=== PATIENT | male | born 1945 | race Caucasian/White ===

== ENCOUNTER → 2017-03-15 | Outpatient (CLI) | payer MEDICARE, BC | LOC: OD 07:13 | DX: Z12.5 Encounter for screening for malignant neoplasm of prostate (principal) | CPT/HCPCS: 36415; G0103 ==

== ENCOUNTER 2017-05-30 19:32 | Inpatient (IN) | payer MEDICARE, BC ==
--- NOTE | 2017-05-30 20:01 | ER Document Report ---
ED General - General Chief Complaint: Shortness Of Breath Stated Complaint: DIFFICULTY BREATHING Time Seen by Provider: 05/30/17 20:00 Notes: The patient is a 72-year-old male, past medical history COPD, presents with increased shortness of breath and difficulty walking over the past 2 days. Wears CPAP at home at night, but does not wear oxygen during the day. No history of smoking. Patient denies chest pain, leg swelling, nausea, vomiting, fevers, headache, back pain or sick contacts. TRAVEL OUTSIDE OF THE [place] IN LAST 30 DAYS: No - Related Data Allergies/Adverse Reactions: nitroglycerin [Nitroglycerin] Allergy (Verified 10/28/13 07:37) BOTTOMED OUT BLOOD PRESSURE Past Medical History - General Information source: Patient - Social History Smoking Status: Never Smoker Family History: Reviewed & Not Pertinent - Past Medical History Cardiac Medical History: Reports: Hx Coronary Artery Disease, Hx Heart Attack, Hx Hypercholesterolemia Denies: Hx Hypertension Pulmonary Medical History: Reports: Hx Bronchitis, Hx COPD, Hx Pneumonia - pt states that he had pneumonia 2 months ago Denies: Hx Asthma Neurological Medical History: Denies: Hx Cerebrovascular Accident, Hx Seizures Renal/ Medical History: Reports: Hx Benign Prostatic Hyperplasia GI Medical History: Reports: Hx Gastroesophageal Reflux Disease, Hx Hiatal Hernia. Denies: Hx Hepatitis, Hx Ulcer Musculoskeltal Medical History: Reports Hx Arthritis Infectious Medical History: Denies: Hx Hepatitis Past Surgical History: Reports: Hx Abdominal Surgery - [place], Hx Cardiac Catheterization, Hx Cardiac Surgery - [facility], Hx Cholecystectomy, Hx Coronary Artery Bypass Graft - 1993, Hx Herniorrhaphy, Hx Open Heart Surgery - 1993 CABG. Denies: Hx Pacemaker - Immunizations Hx Diphtheria, Pertussis, Tetanus Vaccination: Yes Hx Pneumococcal Vaccination: 12/16/08 Review of Systems - Review of Systems Notes: REVIEW OF SYSTEMS: CONSTITUTIONAL: -fevers, -chills EENT: -eye pain, -difficulty swallowing, -nasal congestion CARDIOVASCULAR: -chest pain, -syncope. RESPIRATORY: -cough, +SOB GASTROINTESTINAL: -abdominal pain, -nausea, -vomiting, -diarrhea GENITOURINARY: -dysuria, -hematuria MUSCULOSKELETAL: -back pain, -neck pain SKIN: -rash or skin lesions. HEMATOLOGIC: -easy bruising or bleeding. LYMPHATIC: -swollen, enlarged glands. NEUROLOGICAL: -altered mental status or loss of consciousness, -headache, - neurologic symptoms PSYCHIATRIC: -anxiety, -depression. ALL OTHER SYSTEMS REVIEWED AND NEGATIVE. Physical Exam - Vital signs Vitals: Resp Pulse Ox 36 H 91 L 05/30/17 19:50 05/30/17 19:50 - Notes Notes: PHYSICAL EXAMINATION: GENERAL: Well-appearing, well-nourished and in no acute distress. HEAD: Atraumatic, normocephalic. EYES: Pupils equal round and reactive to light, extraocular movements intact, sclera anicteric, conjunctiva are normal. ENT: nares patent, oropharynx clear without exudates. Moist mucous membranes. NECK: Normal range of motion, supple without lymphadenopathy LUNGS: Diffuse rhonchi. Tachypnea. HEART: Regular rate and rhythm without murmurs ABDOMEN: Soft, nontender, normoactive bowel sounds. No guarding, no rebound. No masses appreciated. EXTREMITIES: Normal range of motion, no pitting or edema. No cyanosis. NEUROLOGICAL: Cranial nerves grossly intact. Normal speech, normal gait. Normal sensory and motor exams. PSYCH: Normal mood, normal affect. SKIN: Warm, Dry, normal turgor, no rashes or lesions noted. Course - Re-evaluation Re-evalutation: Patient arrives tachypneic and tripoding. Placed on BiPap with some improvement in his work of breathing. He was found to be 89% on room air and he does not wear oxygen at home. He is also having generalized body aches and weakness. CTA ordered due to the increased work of breathing, but this does not show evidence of PE or any other concerns. Influenza A is positive. Symptoms are ongoing for the past 2 days, so after discussing the risks and benefits of Tamiflu, will begin Tamiflu due to his underlying COPD. Tried patient off BiPap , but he began to have worsening SOB and labored breathing. Will admit patient for further evaluation and treatment. 05/31/17 01:[address] London and will admit patient as Inpatient to [facility]. - Vital Signs Vital signs: Temp Pulse Resp BP Pulse Ox 100.3 F 84 19 154/124 H 97 05/30/17 20:15 05/30/17 19:55 05/31/17 00:31 05/31/17 00:31 05/31/17 00:31 - Laboratory Result Diagrams: 05/30/17 19:55 05/30/17 19:55 Laboratory results interpreted by me: 05/30/17 05/30/17 05/30/17 19:55 19:55 19:55 RDW 14.9 H Lymphocytes % 10.0 L Creatinine 1.31 H Est GFR (Non-Af Amer) 53 L Glucose 147 H Lactic Acid 2.4 H Direct Bilirubin 0.5 H - Diagnostic Test Radiology reviewed: Image reviewed, Reports reviewed Radiology results interpreted by me: CXR: Cardiomegaly with vascular congestion. - EKG Interpretation by Me EKG shows normal: Sinus rhythm, Jackson, Intervals, QRS Complexes, ST-T Waves Jackson/QRS: Left axis deviation When compared to previous EKG there are: No significant change Discharge - Discharge Clinical Impression: Influenza A, Tachypnea, Hypoxia Condition: Stable Disposition: ADMITTED INPATIENT Admitting Provider: Hospitalist - [facility] Admitted: Telemetry Referrals: NORMA OROZCO MD [Primary Care Provider] - Follow up as needed
[2017-05-30 20:15] LABS: ABSOLUTE BASOPHILS # (AUTO) 0.1 10^3/uL (0.0-0.2); ABSOLUTE MONOCYTES (AUTO) 1.2 10^3/uL (0.1-1.4); ABSOLUTE NEUT (AUTO) 7.7 10^3/uL (1.7-8.2); BASOPHILS % (AUTO) 0.6 % (0-2); EOSINOPHILS % (AUTO) 0.4 % (0-6); HEMATOCRIT 47.1 % (37.9-51.0); HEMOGLOBIN 16.5 g/dL (13.5-17.0); MEAN CORPUSCULAR HGB CONC 34.9 g/dL (32.0-36.0); MEAN CORPUSCULAR VOLUME 94 fl (80-97); MONOCYTES % (AUTO) 11.8 % (3-13); PLATELET COUNT 234 10^3/uL (150-450); RED BLOOD COUNT 4.99 10^6/uL (4.35-5.55); RED CELL DISTRIBUTION WIDTH 14.9 % (11.5-14.0); SEGMENTED NEUTROPHILS % (AUTO) 77.2 % (42-78); TOTAL CELLS COUNTED % (AUTO) 100 %
[2017-05-30 20:44] LABS: BLOOD UREA NITROGEN 16 mg/dL (7-20); CALCIUM 9.5 mg/dL (8.4-10.2); CARBON DIOXIDE 25 mmol/L (22-30); CHLORIDE 100 mmol/L (98-107); GLUCOSE 147 mg/dL (75-110)
[2017-05-30 20:45] LABS: ALANINE AMINOTRANSFERASE 52 U/L (21-72); ALBUMIN 4.7 g/dL (3.5-5.0); ALKALINE PHOSPHATASE 90 U/L (38-126); ANION GAP 14 (5-19); ASPARTATE AMINO TRANSFERASE 41 U/L (17-59); BILIRUBIN,DIRECT 0.5 mg/dL (0.0-0.4); BILIRUBIN,TOTAL 1.2 mg/dL (0.2-1.3); CREATINE KINASE 155 U/L (55-170); SODIUM 139.2 mmol/L (137-145); TOTAL PROTEIN 7.9 g/dL (6.3-8.2)
[2017-05-30 21:02] LABS: VENOUS BLOOD BASE EXCESS 2.6 mmol/L; VENOUS BLOOD HCO3 27.6 mmol/L (20-32); VENOUS BLOOD PCO2 43.7 mmHg (35-63); VENOUS BLOOD PH 7.42 (7.30-7.42)
--- NOTE | 2017-05-30 21:03 | RADIOLOGY REPORT (SQ) ---
EXAM DESCRIPTION: CHEST PA/LAT COMPLETED DATE/TIME: 05/30/2017 8:55 pm REASON FOR STUDY: SOB COMPARISON: 04/06/2014 NUMBER OF VIEWS: Two views. TECHNIQUE: Frontal and lateral radiographic views of the chest acquired. LIMITATIONS: None. FINDINGS: LUNGS AND PLEURA: No opacities, masses or pneumothorax. No pleural effusion. MEDIASTINUM AND HILAR STRUCTURES: Chronic elevation of the right hemidiaphragm. HEART AND VASCULAR STRUCTURES: Cardiac enlargement. Vascular congestion. BONES: No acute findings. HARDWARE: Sternal wires. OTHER: No other significant finding. IMPRESSION: CARDIAC ENLARGEMENT. VASCULAR CONGESTION. TECHNICAL DOCUMENTATION: JOB ID: [id number] [employer]- All Rights Reserved
[2017-05-30] MEDS ORDERED: METHYLPREDNISOLONE INJ 125 MG/2 ML SDV IV ONE (23:11)
[2017-05-30] MEDS ORDERED: IPRATROPIUM/ALBUTEROL 0.5-2.5 MG/3 ML AMPUL NEB ONE (23:11)
--- NOTE | 2017-05-31 00:37 | RADIOLOGY REPORT (SQ) ---
EXAM DESCRIPTION: CTA CHEST CLINICAL HISTORY: 72 years Male, hypoxia, tachypnea COMPARISON: CR, 05/30/2018. CR, 04/06/2014, report only TECHNIQUE: IV contrast. Multiplanar reformat. This exam was performed according to our departmental dose-optimization program, which includes automated exposure control, adjustment of the mA and/or kV according to patient size and/or use of iterative reconstruction technique. FINDINGS: Mild nonspecific mediastinal lymphadenopathy includes a 1.5 x 1.1 cm aortopulmonary node, image 42 of series 3. Small right basilar atelectasis or scar and elevation of the right hemidiaphragm with small right lung volume consistent with prior report, 04/06/2014. No evidence of pulmonary embolus. No right ventricular strain. Moderate coronary arterial calcification-stenting. Sternotomy. Surgical clips of the right upper abdominal quadrant. Moderate fatty replacement of the pancreas. IMPRESSION: No evidence of pulmonary embolus. Chronic, small right basilar atelectasis or scar. Mild nonspecific mediastinal lymphadenopathy.
[2017-05-31 01:05] LABS: A TYPE INFLUENZA AG POSITIVE (NEGATIVE)
[2017-05-31 01:06] LABS: B INFLUENZA AG NEGATIVE (NEGATIVE)
[2017-05-31] MEDS ORDERED: OSELTAMIVIR PHOSPHATE 75 MG CAPSULE PO ONE (01:15)
[2017-05-31] MEDS ORDERED: CHLORPHENIRAMINE MALEATE 4 MG TABLET PO ONE (01:24)
[2017-05-31] MEDS ORDERED: IPRATROPIUM/ALBUTEROL 0.5-2.5 MG/3 ML AMPUL NEB PRN (01:24)
[2017-05-31] MEDS ORDERED: NORMAL SALINE 1000 ML 1,000 ML IV SCH (01:30)
[2017-05-31] MEDS ORDERED: FLUTICASONE NASAL SPRAY 50 MCG/SPRY 120 SPRAY/16 GM NASL ONE (01:45)
[2017-05-31] MEDS: IPRATROPIUM/ALBUTEROL 0.5-2.5 MG/3 ML AMPUL NEB SCH ×4 (01:55→20:14)
[2017-05-31] MEDS ORDERED: LEVOFLOXACIN 750 MG/D5W RTU 750 MG/150 ML RTUPB IV ONE (02:00)
[2017-05-31] MEDS ORDERED: CHLORPHENIRAMINE MALEATE 4 MG TABLET ONE (02:31)
[2017-05-31] MEDS ORDERED: FLUTICASONE NASAL SPRAY 50 MCG/SPRY 120 SPRAY/16 GM ONE (02:32)
[2017-05-31 04:29] LABS: HEMATOCRIT 44.8 % (37.9-51.0); HEMOGLOBIN 15.4 g/dL (13.5-17.0); MEAN CORPUSCULAR HEMOGLOBIN 32.4 pg (27.0-33.4); MEAN CORPUSCULAR HGB CONC 34.5 g/dL (32.0-36.0); MEAN CORPUSCULAR VOLUME 94 fl (80-97); PLATELET COUNT 214 10^3/uL (150-450); RED BLOOD COUNT 4.76 10^6/uL (4.35-5.55); RED CELL DISTRIBUTION WIDTH 14.6 % (11.5-14.0); WHITE BLOOD COUNT 13.7 10^3/uL (4.0-10.5)
[2017-05-31 04:39] LABS: ANION GAP 16 (5-19); BLOOD UREA NITROGEN 18 mg/dL (7-20); CALCIUM 9.2 mg/dL (8.4-10.2); CARBON DIOXIDE 23 mmol/L (22-30); CHLORIDE 99 mmol/L (98-107); GLUCOSE 211 mg/dL (75-110); POTASSIUM 3.9 mmol/L (3.6-5.0); SODIUM 137.7 mmol/L (137-145)
[2017-05-31 04:55] LABS: ABSOLUTE LYMPHOCYTES# (MANUAL) 0.5 10^3/uL (0.5-4.7); ABSOLUTE MONOCYTES # (MANUAL) 0.7 10^3/uL (0.1-1.4); ABSOLUTE NEUTROPHILS# (MANUAL) 12.5 10^3/uL (1.7-8.2); BAND NEUTROPHILS % (MANUAL) 10 % (3-5); BASOPHILS % (MANUAL) 0 % (0-2); EOSINOPHILS % (MANUAL) 0 % (0-6); LYMPHOCYTES % (MANUAL) 4 % (13-45); MONOCYTES % (MANUAL) 5 % (3-13); SEGMENTED NEUTROPHILS % (MAN) 81 % (42-78); TOTAL CELLS COUNTED 100
[2017-05-31 04:56] LABS: PLATELET COMMENT ADEQUATE; RBC MORPHOLOGY COMMENT NORMO-CYTIC/CHROMIC
[2017-05-31] MEDS ORDERED: VANCOMYCIN HCL 1,000 MG in DEXTROSE 5%-WATER 250 ML IV ONE (05:34)
--- NOTE | 2017-05-31 05:42 | PDOC H&P ---
History of Present Illness Admission Date/PCP: 05/31/17 01:33 NORMA OROZCO MD Patient complains of: Shortness of breath History of Present Illness: LISE ARCHIBALD is a 72 year old male with past medical history of COPD, obstructive sleep apnea and vascular dementia. Patient presents with 2 days of exertional shortness of breath and nonproductive cough prompting an evaluation emergency room where he was found to have influenza A, started on Tamiflu, albuterol and Atrovent. CTA obtained was negative for pulmonary emboli but showed emphysema with scarring. Given persistent hypoxia is referred to the hospitalist for admission. Patient is a very limited historian but socially appropriate and denies pain. Past Medical History Cardiac Medical History: Reports: Coronary Artery Disease, Myocardial Infarction , Hyperlipidema Denies: Hypertension Pulmonary Medical History: Reports: Bronchitis, Chronic Obstructive Pulmonary Disease (COPD), Pneumonia - pt states that he had pneumonia 2 months ago Denies: Asthma Neurological Medical History: Denies: Seizures GI Medical History: Reports: Gastroesophageal Reflux Disease, Hiatal Hernia Denies: Hepatitis Musculoskeltal Medical History: Reports: Arthritis Hematology: Denies: Anemia, Sickle Cell Disease Past Surgical History Past Surgical History: Reports: Cardiac Catheterization, Cholecystectomy, Coronary Artery Bypass Graft - 1993, Herniorrhaphy Denies: Pacemaker Social History Information Source: Patient, [facility] Records Lives with: Spouse/Significant other Smoking Status: Never Smoker Frequency of Alcohol Use: None Hx Recreational Drug Use: No Hx Prescription Drug Abuse: No - Advance Directive Resuscitation Status: Full Code Family History Family History: COPD Parental Family History Reviewed: Yes Children Family History Reviewed: Yes Sibling(s) Family History Reviewed.: Yes Medication/Allergy Home Medications: Aspirin [Aspirin 325 mg Tablet] 325 mg PO DAILY 05/24/11 Folic Acid/Mv,Fe,Other Min [Centrum Complete Multivit Tab] 1 each PO DAILY 05/24 Niacin [Niaspan] 750 mg PO BID 05/24/11 Tamsulosin HCl [Flomax 0.4 mg Cap.sr] 0.4 mg PO BID 05/24/11 Vitamin B Complex [B Complex] 1 each PO DAILY 05/24/11 Omeprazole [Prilosec 40 mg Capsule] 40 mg PO BID #0 05/26/12 Finasteride [Proscar 5 mg Tablet] 5 mg PO DAILY 10/28/13 Cetirizine HCl [All Day Allergy] 10 mg PO DAILY 04/03/14 Montelukast Sodium [Singulair 10 mg Tablet] 10 mg PO QHS 04/03/14 Albuterol Sulfate [Albuterol Sulfate 2.5mg/3 mL] 1 vial IH Q4 PRN #30 vial 04/07 Fluticasone Propionate [Flonase Nasal [place] 50 Mcg/[place] 16 gm] 1 spray NASL Q12 #1 spray.pump 04/07/14 Levofloxacin [Levaquin] 500 mg PO DAILY #5 tablet 04/07/14 Prednisone [Deltasone 10 mg Tablet] 10 mg PO ASDIR PRN #21 tablet 04/07/14 Allergies/Adverse Reactions: nitroglycerin [Nitroglycerin] Allergy (Verified 10/28/13 07:37) BOTTOMED OUT BLOOD PRESSURE Review of Systems ROS unobtainable: Due to mental status Physical Exam Vital Signs: Temp Pulse Resp BP Pulse Ox 100.3 F 76 27 H 134/76 H 97 05/30/17 20:15 05/31/17 01:55 05/31/17 04:02 05/31/17 04:02 05/31/17 04:02 Intake & Output 05/29/17 05/30/17 05/31/17 11:59 11:59 11:59 Output Total 300 Balance -300 General appearance: PRESENT: cooperative, mild distress Head exam: PRESENT: atraumatic, normocephalic Eye exam: PRESENT: conjunctiva pink, EOMI, PERRLA. ABSENT: scleral icterus Ear exam: PRESENT: normal external ear exam Mouth exam: PRESENT: moist, tongue midline Neck exam: ABSENT: carotid bruit, JVD, lymphadenopathy, thyromegaly Respiratory exam: PRESENT: accessory muscle use, crackles, prolonged expiratory phas, rales, rhonchi, symmetrical, tachypnea. ABSENT: clear to auscultation onel , stridor, wheezes Cardiovascular exam: PRESENT: gallop, +S1, +S2, tachycardia Pulses: PRESENT: normal dorsalis pedis pul Vascular exam: PRESENT: normal capillary refill GI/Abdominal exam: PRESENT: normal bowel sounds, soft. ABSENT: distended, guarding, mass, organolmegaly, rebound, tenderness Rectal exam: PRESENT: deferred Extremities exam: PRESENT: full ROM. ABSENT: calf tenderness, clubbing, pedal edema Neurological exam: PRESENT: alert, awake, oriented to person, oriented to place , oriented to time, oriented to situation, CN II-XII grossly intact. ABSENT: motor sensory deficit Psychiatric exam: PRESENT: appropriate affect, normal mood. ABSENT: homicidal ideation, suicidal ideation Skin exam: PRESENT: dry, intact, warm. ABSENT: cyanosis, rash Results Laboratory Results: 05/31/17 04:10 05/31/17 04:10 05/31/17 05/31/17 04:10 04:10 WBC 13.7 H RBC 4.76 Hgb 15.4 Hct 44.8 MCV 94 MCH 32.4 MCHC 34.5 RDW 14.6 H Plt Count 214 Seg Neutrophils % Not Reportable Lymphocytes % Not Reportable Monocytes % Not Reportable Eosinophils % Not Reportable Basophils % Not Reportable Absolute Neutrophils Not Reportable Absolute Lymphocytes Not Reportable Absolute Monocytes Not Reportable Absolute Eosinophils Not Reportable Absolute Basophils Not Reportable Sodium 137.7 Potassium 3.9 Chloride 99 Carbon Dioxide 23 Anion Gap 16 BUN 18 Creatinine 1.25 Est GFR ( Amer) > 60 Est GFR (Non-Af Amer) 56 L Glucose 211 H Calcium 9.2 Impressions: Chest X-Ray 05/30/17 20:00 IMPRESSION: CARDIAC ENLARGEMENT. VASCULAR CONGESTION. Chest/Abdomen CTA 05/30/17 23:11 IMPRESSION: No evidence of pulmonary embolus. Chronic, small right basilar atelectasis or scar. Mild nonspecific mediastinal lymphadenopathy. Assessment & Plan - Diagnosis (1) Pneumonia Is this a current diagnosis for this admission?: Yes Plan: Complicated by influenza and bandemia. Pneumonia care set initiated Tamiflu and vancomycin given influenza. Incentive spirometry, BiPAP albuterol and Atrovent. (2) Influenza A Is this a current diagnosis for this admission?: Yes Plan: Tamiflu and supportive measures (3) Obstructive chronic bronchitis with exacerbation Is this a current diagnosis for this admission?: Yes Plan: Flutter valve (4) CAD (coronary artery disease) Is this a current diagnosis for this admission?: Yes Plan: Serial cardiac enzymes. - Time Time Spent: 50 to 70 Minutes - Inpatient Certification Medical Necessity: Need Close Monitoring Due to Risk of Patient Decompensation
[2017-05-31] MEDS ORDERED: VANCOMYCIN HCL 0 MG in DEXTROSE 5%-WATER 250 ML IV NR (05:45)
[2017-05-31] MEDS ORDERED: VANCOMYCIN HCL INJ 1000 MG VIAL IV ONE (06:30)
--- NOTE | 2017-05-31 09:41 | EKG REPORT ---
SEVERITY:- OTHERWISE NORMAL ECG - SINUS RHYTHM LEFT AXIS DEVIATION : Confirmed by: Damon Hale 31-May-2017 09:39:19
[2017-05-31] MEDS: ASPIRIN 325 MG TABLET PO SCH (09:42)
[2017-05-31] MEDS: OSELTAMIVIR PHOSPHATE 75 MG CAPSULE PO SCH (09:42)
[2017-05-31] MEDS: GUAIFENESIN SYRP 200 MG/10 ML UDC PO PRN (09:43)
[2017-05-31] MEDS: GUAIFENESIN 600 MG TABLET.SA PO SCH ×2 (09:44→22:58)
[2017-05-31] MEDS: LORATADINE 10 MG TABLET PO SCH (09:45)
[2017-05-31] MEDS: FINASTERIDE 5 MG TABLET PO SCH (09:45)
[2017-05-31] MEDS: PREDNISONE 20 MG TABLET PO SCH ×2 (09:46→22:58)
[2017-05-31] MEDS: TAMSULOSIN HCL 0.4 MG CAP.SR.24H PO SCH ×2 (09:46→19:11)
[2017-05-31] MEDS: HEPARIN SOD (PORCINE) 5,000 UNIT/ML 1 ML SYRINGE SUBCUT SCH ×3 (09:47→22:57)
[2017-05-31] MEDS: FLUTICASONE NASAL SPRAY 50 MCG/SPRY 120 SPRAY/16 GM NASL SCH ×2 (09:57→22:58)
[2017-05-31] MEDS ORDERED: (PENDING PHARMACY ID) (Cetirizine Hcl [All Day Allergy] 10 MG) PO SCH (10:00)
[2017-05-31] MEDS: VANCOMYCIN HCL 1,000 MG in DEXTROSE 5%-WATER 250 ML IV SCH (18:30)
--- NOTE | 2017-05-31 19:08 | PDOC PROGRESS REPORT ---
Subjective Progress Note for:: 05/31/17 Subjective:: Breathing improving, no chest pain or palpitations. No rebound or chills, no nausea or vomiting. Reason For Visit: INFLUENZAE PNEUMONIA C COPD EXACERBATION Physical Exam Vital Signs: Temp Pulse Resp BP Pulse Ox 97.6 F 69 20 137/67 H 96 05/31/17 16:09 05/31/17 16:09 05/31/17 16:09 05/31/17 16:09 05/31/17 16:09 Intake & Output 05/30/17 05/31/17 06/01/17 06:59 06:59 06:59 Output Total 300 Balance -300 GEN: NAD, well-deloped, well-nourished NECK supple, no JVD CV: RRR, NL S1S2 LUNGS: Few bilateral expiratory wheezes, good air movement ABDOMEN Soft, NT, +BS EXTERMITIES: No e/c/c NEURO: Alert, oriented Results Laboratory Results: 05/31/17 04:10 05/31/17 04:10 05/31/17 05/31/17 04:10 04:10 WBC 13.7 H RBC 4.76 Hgb 15.4 Hct 44.8 MCV 94 MCH 32.4 MCHC 34.5 RDW 14.6 H Plt Count 214 Seg Neutrophils % Not Reportable Lymphocytes % Not Reportable Monocytes % Not Reportable Eosinophils % Not Reportable Basophils % Not Reportable Absolute Neutrophils Not Reportable Absolute Lymphocytes Not Reportable Absolute Monocytes Not Reportable Absolute Eosinophils Not Reportable Absolute Basophils Not Reportable Sodium 137.7 Potassium 3.9 Chloride 99 Carbon Dioxide 23 Anion Gap 16 BUN 18 Creatinine 1.25 Est GFR ( Amer) > 60 Est GFR (Non-Af Amer) 56 L Glucose 211 H Calcium 9.2 Impressions: Chest X-Ray 05/30/17 20:00 IMPRESSION: CARDIAC ENLARGEMENT. VASCULAR CONGESTION. Chest/Abdomen CTA 05/30/17 23:11 IMPRESSION: No evidence of pulmonary embolus. Chronic, small right basilar atelectasis or scar. Mild nonspecific mediastinal lymphadenopathy. Assessment & Plan - Plan Summary Plan Summary: (1) Pneumonia Is this a current diagnosis for this admission?: Yes Plan: Complicated by influenza and bandemia. Continue Tamiflu and vancomycin given influenza. Continue incentive spirometry, BiPAP albuterol and Atrovent. Follow blood culture results. (2) Influenza A Is this a current diagnosis for this admission?: Yes Plan: Continue Tamiflu and supportive measures (3) Obstructive chronic bronchitis with exacerbation Is this a current diagnosis for this admission?: Yes Plan: BiPAP, nebulizers, steroids. (4) CAD (coronary artery disease) Is this a current diagnosis for this admission?: Yes Plan: Stable, no chest pain.
[2017-05-31 20:16] LABS: HEMATOCRIT 41.7 % (37.9-51.0); HEMOGLOBIN 14.3 g/dL (13.5-17.0); MEAN CORPUSCULAR HEMOGLOBIN 32.1 pg (27.0-33.4); MEAN CORPUSCULAR HGB CONC 34.2 g/dL (32.0-36.0); MEAN CORPUSCULAR VOLUME 94 fl (80-97); PLATELET COUNT 190 10^3/uL (150-450); RED BLOOD COUNT 4.44 10^6/uL (4.35-5.55); RED CELL DISTRIBUTION WIDTH 14.4 % (11.5-14.0); WHITE BLOOD COUNT 16.2 10^3/uL (4.0-10.5)
[2017-05-31 20:20] LABS: ANION GAP 13 (5-19); BLOOD UREA NITROGEN 24 mg/dL (7-20); CALCIUM 9.2 mg/dL (8.4-10.2); CARBON DIOXIDE 23 mmol/L (22-30); CHLORIDE 96 mmol/L (98-107); GLUCOSE 283 mg/dL (75-110); POTASSIUM 3.6 mmol/L (3.6-5.0); SODIUM 132.1 mmol/L (137-145)
[2017-05-31 20:51] LABS: ABSOLUTE LYMPHOCYTES# (MANUAL) 0.8 10^3/uL (0.5-4.7); ABSOLUTE MONOCYTES # (MANUAL) 0.6 10^3/uL (0.1-1.4); ABSOLUTE NEUTROPHILS# (MANUAL) 14.7 10^3/uL (1.7-8.2); BAND NEUTROPHILS % (MANUAL) 5 % (3-5); BASOPHILS % (MANUAL) 0 % (0-2); EOSINOPHILS % (MANUAL) 0 % (0-6); LYMPHOCYTES % (MANUAL) 5 % (13-45); MONOCYTES % (MANUAL) 4 % (3-13); SEGMENTED NEUTROPHILS % (MAN) 86 % (42-78); TOTAL CELLS COUNTED 100
[2017-05-31 20:54] LABS: ANISOCYTOSIS SLIGHT; BURR CELLS SLIGHT; TOXIC GRANULATION 1+
[2017-05-31 20:56] LABS: PLATELET COMMENT ADEQUATE; SCHISTOCYTES 1+; TEAR DROP CELLS 1+
[2017-05-31] MEDS: LEVOFLOXACIN 750 MG/D5W RTU 750 MG/150 ML RTUPB IV SCH (22:58)
[2017-05-31] MEDS: MONTELUKAST SODIUM 10 MG TABLET PO SCH (22:58)
[2017-06-01] MEDS: IPRATROPIUM/ALBUTEROL 0.5-2.5 MG/3 ML AMPUL NEB SCH ×4 (02:17→20:50)
[2017-06-01 05:31] LABS: ABSOLUTE LYMPHOCYTES (AUTO) 0.8 10^3/uL (0.5-4.7); ABSOLUTE MONOCYTES (AUTO) 1.3 10^3/uL (0.1-1.4); ABSOLUTE NEUT (AUTO) 13.4 10^3/uL (1.7-8.2); BASOPHILS % (AUTO) 0.2 % (0-2); HEMATOCRIT 39.8 % (37.9-51.0); HEMOGLOBIN 13.8 g/dL (13.5-17.0); LYMPHOCYTES % (AUTO) 5.2 % (13-45); MEAN CORPUSCULAR HEMOGLOBIN 32.4 pg (27.0-33.4); MEAN CORPUSCULAR HGB CONC 34.8 g/dL (32.0-36.0); MEAN CORPUSCULAR VOLUME 93 fl (80-97); MONOCYTES % (AUTO) 8.1 % (3-13); PLATELET COUNT 182 10^3/uL (150-450); RED BLOOD COUNT 4.28 10^6/uL (4.35-5.55); SEGMENTED NEUTROPHILS % (AUTO) 86.5 % (42-78); TOTAL CELLS COUNTED % (AUTO) 100 %; WHITE BLOOD COUNT 15.5 10^3/uL (4.0-10.5)
[2017-06-01 05:40] LABS: ANION GAP 13 (5-19); BLOOD UREA NITROGEN 24 mg/dL (7-20); CALCIUM 8.9 mg/dL (8.4-10.2); CARBON DIOXIDE 23 mmol/L (22-30); CHLORIDE 100 mmol/L (98-107); GLUCOSE 157 mg/dL (75-110); POTASSIUM 3.8 mmol/L (3.6-5.0); SODIUM 135.9 mmol/L (137-145)
[2017-06-01] MEDS: VANCOMYCIN HCL 1,000 MG in DEXTROSE 5%-WATER 250 ML IV SCH (06:23)
[2017-06-01] MEDS: HEPARIN SOD (PORCINE) 5,000 UNIT/ML 1 ML SYRINGE SUBCUT SCH ×3 (06:23→20:50)
[2017-06-01] MEDS: ASPIRIN 325 MG TABLET PO SCH (11:25)
[2017-06-01] MEDS: LORATADINE 10 MG TABLET PO SCH (11:26)
[2017-06-01] MEDS: FINASTERIDE 5 MG TABLET PO SCH (11:26)
[2017-06-01] MEDS: OSELTAMIVIR PHOSPHATE 75 MG CAPSULE PO SCH (11:26)
[2017-06-01] MEDS: PREDNISONE 20 MG TABLET PO SCH ×2 (11:26→20:50)
[2017-06-01] MEDS: TAMSULOSIN HCL 0.4 MG CAP.SR.24H PO SCH ×2 (11:26→17:24)
[2017-06-01] MEDS: FLUTICASONE NASAL SPRAY 50 MCG/SPRY 120 SPRAY/16 GM NASL SCH ×2 (11:27→20:49)
[2017-06-01] MEDS: GUAIFENESIN 600 MG TABLET.SA PO SCH ×2 (11:30→20:49)
[2017-06-01] MEDS: ACETAMINOPHEN 325 MG TABLET PO PRN (13:54)
[2017-06-01] MEDS: VANCOMYCIN HCL 1,500 MG in DEXTROSE 5%-WATER 250 ML IV SCH (17:24)
--- NOTE | 2017-06-01 17:55 | PDOC PROGRESS REPORT ---
Subjective Progress Note for:: 06/01/17 Subjective:: Breathing continues improving, no chest pain or palpitations. No fever or chills, no nausea or vomiting. Reason For Visit: INFLUENZAE PNEUMONIA C COPD EXACERBATION Physical Exam Vital Signs: Temp Pulse Resp BP Pulse Ox 98.4 F 73 17 136/58 H 94 06/01/17 16:38 06/01/17 16:38 06/01/17 16:38 06/01/17 16:38 06/01/17 16:38 Intake & Output 05/31/17 06/01/17 06/02/17 06:59 06:59 06:59 Intake Total 360 Output Total 300 650 Balance -300 -290 Weight 112.5 kg 112.5 kg GEN: NAD, well-deloped, well-nourished NECK supple, no JVD CV: RRR, NL S1S2 LUNGS: Few bilateral expiratory wheezes, good air movement ABDOMEN Soft, NT, +BS EXTERMITIES: No e/c/c NEURO: Alert, oriented Results Laboratory Results: 06/01/17 05:02 06/01/17 05:02 05/31/17 05/31/17 06/01/17 19:54 19:54 05:02 WBC 16.2 H 15.5 H RBC 4.44 4.28 L Hgb 14.3 13.8 Hct 41.7 39.8 MCV 94 93 MCH 32.1 32.4 MCHC 34.2 34.8 RDW 14.4 H 15.0 H Plt Count 190 182 Seg Neutrophils % Not Reportable 86.5 H Lymphocytes % Not Reportable 5.2 L Monocytes % Not Reportable 8.1 Eosinophils % Not Reportable 0.0 Basophils % Not Reportable 0.2 Absolute Neutrophils Not Reportable 13.4 H Absolute Lymphocytes Not Reportable 0.8 Absolute Monocytes Not Reportable 1.3 Absolute Eosinophils Not Reportable 0.0 Absolute Basophils Not Reportable 0.0 Sodium 132.1 L Potassium 3.6 Chloride 96 L Carbon Dioxide 23 Anion Gap 13 BUN 24 H Creatinine 1.27 H Est GFR ( Amer) > 60 Est GFR (Non-Af Amer) 55 L Glucose 283 H Calcium 9.2 06/01/17 05:02 WBC RBC Hgb Hct MCV MCH MCHC RDW Plt Count Seg Neutrophils % Lymphocytes % Monocytes % Eosinophils % Basophils % Absolute Neutrophils Absolute Lymphocytes Absolute Monocytes Absolute Eosinophils Absolute Basophils Sodium 135.9 L Potassium 3.8 Chloride 100 Carbon Dioxide 23 Anion Gap 13 BUN 24 H Creatinine 1.07 Est GFR ( Amer) > 60 Est GFR (Non-Af Amer) > 60 Glucose 157 H Calcium 8.9 Impressions: Chest X-Ray 05/30/17 20:00 IMPRESSION: CARDIAC ENLARGEMENT. VASCULAR CONGESTION. Chest/Abdomen CTA 05/30/17 23:11 IMPRESSION: No evidence of pulmonary embolus. Chronic, small right basilar atelectasis or scar. Mild nonspecific mediastinal lymphadenopathy. Assessment & Plan - Plan Summary Plan Summary: (1) Pneumonia Is this a current diagnosis for this admission?: Yes Plan: Suspected. Complicated by influenza and bandemia. Continue Tamiflu and vancomycin given influenza. Continue incentive spirometry, BiPAP albuterol and Atrovent. Blood cultures no growth 24 hours. Follow blood culture results. -Follow-up chest x-ray in a.m. (2) Influenza A Is this a current diagnosis for this admission?: Yes Plan: Continue Tamiflu and supportive measures (3) Obstructive chronic bronchitis with exacerbation Is this a current diagnosis for this admission?: Yes Plan: BiPAP, nebulizers, steroids. (4) CAD (coronary artery disease) Is this a current diagnosis for this admission?: Yes Plan: Stable, no chest pain.
[2017-06-01 19:22] LABS: ABSOLUTE BASOPHILS # (AUTO) 0.1 10^3/uL (0.0-0.2); ABSOLUTE LYMPHOCYTES (AUTO) 0.8 10^3/uL (0.5-4.7); ABSOLUTE MONOCYTES (AUTO) 0.9 10^3/uL (0.1-1.4); ABSOLUTE NEUT (AUTO) 12.3 10^3/uL (1.7-8.2); BASOPHILS % (AUTO) 0.7 % (0-2); HEMATOCRIT 38.8 % (37.9-51.0); HEMOGLOBIN 13.4 g/dL (13.5-17.0); MEAN CORPUSCULAR HEMOGLOBIN 32.4 pg (27.0-33.4); MEAN CORPUSCULAR HGB CONC 34.5 g/dL (32.0-36.0); MEAN CORPUSCULAR VOLUME 94 fl (80-97); MONOCYTES % (AUTO) 6.4 % (3-13); PLATELET COUNT 208 10^3/uL (150-450); RED BLOOD COUNT 4.13 10^6/uL (4.35-5.55); RED CELL DISTRIBUTION WIDTH 14.8 % (11.5-14.0); SEGMENTED NEUTROPHILS % (AUTO) 86.9 % (42-78); TOTAL CELLS COUNTED % (AUTO) 100 %; WHITE BLOOD COUNT 14.2 10^3/uL (4.0-10.5)
[2017-06-01 19:38] LABS: ANION GAP 11 (5-19); BLOOD UREA NITROGEN 25 mg/dL (7-20); CALCIUM 8.7 mg/dL (8.4-10.2); CARBON DIOXIDE 25 mmol/L (22-30); CHLORIDE 97 mmol/L (98-107); GLUCOSE 283 mg/dL (75-110); POTASSIUM 4.2 mmol/L (3.6-5.0); SODIUM 132.9 mmol/L (137-145)
[2017-06-01] MEDS: MONTELUKAST SODIUM 10 MG TABLET PO SCH (20:50)
[2017-06-01] MEDS: LEVOFLOXACIN 750 MG/D5W RTU 750 MG/150 ML RTUPB IV SCH (20:50)
[2017-06-01] MEDS: GUAIFENESIN SYRP 200 MG/10 ML UDC PO PRN (23:20)
[2017-06-02] MEDS ORDERED: NORMAL SALINE 1000 ML 1,000 ML IV ONE (01:06)
[2017-06-02] MEDS ORDERED: DILTIAZEM HCL INJ 25 MG/5 ML VIAL ONE (01:07)
[2017-06-02] MEDS ORDERED: DONEPEZIL HCL 5 MG TABLET PO ONE (01:15)
[2017-06-02] MEDS ORDERED: MEMANTINE HCL 10 MG TABLET PO ONE (01:15)
[2017-06-02] MEDS ORDERED: DILTIAZEM HCL INJ 25 MG/5 ML VIAL IV STA (01:23)
[2017-06-02] MEDS ORDERED: LORAZEPAM INJ 2 MG/1 ML VIAL ONE ×3 (01:35→05:23)
[2017-06-02] MEDS ORDERED: LORAZEPAM INJ 2 MG/1 ML VIAL IV STA ×2 (01:36→03:40)
[2017-06-02] MEDS ORDERED: METOPROLOL TARTRATE PF/INJ 5 MG/5 ML SDV IV ONE (01:57)
[2017-06-02] MEDS ORDERED: METOPROLOL TARTRATE PF/INJ 5 MG/5 ML SDV IV STA (01:58)
[2017-06-02 02:03] LABS: CREATINE KINASE MB 7.08 ng/mL (<4.55)
[2017-06-02 02:10] LABS: TROPONIN I < 0.012 ng/mL
[2017-06-02] MEDS ORDERED: DILTIAZEM HCL/D5W 125 MG/125 ML RTUINJ IV PRN (02:22)
[2017-06-02] MEDS: IPRATROPIUM/ALBUTEROL 0.5-2.5 MG/3 ML AMPUL NEB SCH ×4 (02:56→19:46)
[2017-06-02] MEDS ORDERED: LORAZEPAM INJ 2 MG/1 ML VIAL IM STA ×2 (04:59→05:30)
[2017-06-02] MEDS: HEPARIN SOD (PORCINE) 5,000 UNIT/ML 1 ML SYRINGE SUBCUT SCH ×3 (05:42→22:17)
[2017-06-02] MEDS: VANCOMYCIN HCL 1,500 MG in DEXTROSE 5%-WATER 250 ML IV SCH ×2 (05:42→17:46)
[2017-06-02] MEDS ORDERED: VANCOMYCIN HCL 1,500 MG in DEXTROSE 5%-WATER 250 ML IV ONE (08:45)
[2017-06-02] MEDS ORDERED: HALOPERIDOL LACTATE INJ 5 MG/1 ML VIAL IV ONE (09:00)
[2017-06-02 09:33] LABS: ABSOLUTE BASOPHILS # (AUTO) 0.1 10^3/uL (0.0-0.2); ABSOLUTE LYMPHOCYTES (AUTO) 1.4 10^3/uL (0.5-4.7); ABSOLUTE MONOCYTES (AUTO) 1.3 10^3/uL (0.1-1.4); ABSOLUTE NEUT (AUTO) 9.7 10^3/uL (1.7-8.2); BASOPHILS % (AUTO) 0.6 % (0-2); EOSINOPHILS % (AUTO) 0.1 % (0-6); HEMATOCRIT 39.2 % (37.9-51.0); HEMOGLOBIN 13.5 g/dL (13.5-17.0); LYMPHOCYTES % (AUTO) 11.5 % (13-45); MEAN CORPUSCULAR HEMOGLOBIN 31.8 pg (27.0-33.4); MEAN CORPUSCULAR HGB CONC 34.3 g/dL (32.0-36.0); MEAN CORPUSCULAR VOLUME 93 fl (80-97); MONOCYTES % (AUTO) 10.2 % (3-13); PLATELET COUNT 225 10^3/uL (150-450); RED BLOOD COUNT 4.24 10^6/uL (4.35-5.55); RED CELL DISTRIBUTION WIDTH 15.1 % (11.5-14.0); SEGMENTED NEUTROPHILS % (AUTO) 77.6 % (42-78); TOTAL CELLS COUNTED % (AUTO) 100 %; WHITE BLOOD COUNT 12.5 10^3/uL (4.0-10.5)
[2017-06-02 09:41] LABS: ANION GAP 11 (5-19); BLOOD UREA NITROGEN 23 mg/dL (7-20); CARBON DIOXIDE 22 mmol/L (22-30); CHLORIDE 105 mmol/L (98-107); GLUCOSE 131 mg/dL (75-110); POTASSIUM 4.1 mmol/L (3.6-5.0); SODIUM 137.9 mmol/L (137-145)
[2017-06-02 09:54] LABS: CREATINE KINASE MB 6.96 ng/mL (<4.55); TROPONIN I 0.025 ng/mL
[2017-06-02] MEDS: ASPIRIN 325 MG TABLET PO SCH (10:16)
[2017-06-02] MEDS: TAMSULOSIN HCL 0.4 MG CAP.SR.24H PO SCH ×2 (10:17→17:45)
[2017-06-02] MEDS: FINASTERIDE 5 MG TABLET PO SCH (10:17)
[2017-06-02] MEDS: LORATADINE 10 MG TABLET PO SCH (10:17)
[2017-06-02] MEDS: GUAIFENESIN 600 MG TABLET.SA PO SCH ×2 (10:17→22:17)
[2017-06-02] MEDS: PREDNISONE 20 MG TABLET PO SCH ×2 (10:17→22:17)
[2017-06-02] MEDS: MEMANTINE HCL 10 MG TABLET PO SCH ×2 (10:17→17:45)
[2017-06-02] MEDS: FLUTICASONE NASAL SPRAY 50 MCG/SPRY 120 SPRAY/16 GM NASL SCH ×2 (10:18→22:17)
[2017-06-02] MEDS: DONEPEZIL HCL 5 MG TABLET PO SCH ×2 (10:18→17:44)
[2017-06-02] MEDS: OSELTAMIVIR PHOSPHATE 75 MG CAPSULE PO SCH (10:18)
--- NOTE | 2017-06-02 11:12 | EKG REPORT ---
SEVERITY:- ABNORMAL ECG - ATRIAL FIBRILLATION WITH RAPID V-RATE LEFT AXIS DEVIATION REPOLARIZATION ABNORMALITY, PROB RATE RELATED : Confirmed by: Damon Hale 02-Jun-2017 11:12:00
[2017-06-02 12:43] LABS: ARTERIAL BLOOD BASE EXCESS 0.2 mmol/L; ARTERIAL BLOOD FIO2 3L; ARTERIAL BLOOD H2CO3 1.14 mmol/L (1.05-1.35); ARTERIAL BLOOD HCO3 24.4 mmol/L (20-26); ARTERIAL BLOOD O2 SATURATION 97.6 % (94-98); ARTERIAL BLOOD PH 7.43 (7.35-7.45); ARTERIAL BLOOD PO2 97.5 mmHg (80-100); ARTERIAL BLOOD TOTAL CO2 25.5 mmol/L (23-27)
--- NOTE | 2017-06-02 14:06 | RADIOLOGY REPORT (SQ) ---
EXAM DESCRIPTION: CHEST SINGLE VIEW COMPLETED DATE/TIME: 06/02/2017 1:38 pm REASON FOR STUDY: Pneumonia COMPARISON: 05/30/2017 EXAM PARAMETERS: NUMBER OF VIEWS: One view. TECHNIQUE: Single frontal radiographic view of the chest acquired. RADIATION DOSE: NA LIMITATIONS: None. FINDINGS: LUNGS AND PLEURA: New parenchymal opacity at the left lung base. Right lung is clear. MEDIASTINUM AND HILAR STRUCTURES: No masses. Contour normal. HEART AND VASCULAR STRUCTURES: Heart enlarged. No overt failure. BONES: Sternal wires. HARDWARE: None in the chest. OTHER: No other significant finding. IMPRESSION: Interval development of left lower lobe pneumonia. TECHNICAL DOCUMENTATION: JOB ID: [id number] [employer]- All Rights Reserved
[2017-06-02 15:09] LABS: CREATINE KINASE MB 5.33 ng/mL (<4.55); TROPONIN I 0.018 ng/mL
[2017-06-02] MEDS ORDERED: HALOPERIDOL LACTATE INJ 5 MG/1 ML VIAL IV PRN (17:37)
[2017-06-02 19:04] LABS: APPEARANCE,URINE CLEAR; BILIRUBIN,URINE NEGATIVE (NEGATIVE); COLOR,URINE YELLOW; GLUCOSE, URINE NEGATIVE (NEGATIVE); KETONES,URINE NEGATIVE (NEGATIVE); LEUKOCYTE ESTERASE,URINE NEGATIVE (NEGATIVE); NITRITE,URINE NEGATIVE (NEGATIVE); PROTEIN,URINE NEGATIVE (NEGATIVE); URINE SPECIFIC GRAVITY 1.027
--- NOTE | 2017-06-02 20:31 | PDOC PROGRESS REPORT ---
Subjective Progress Note for:: 06/02/17 Subjective:: Had episodes of A. fib with rapid ventricular response overnight to 170s. Also with restlessness, treated with Ativan, but no typing way. Patient currently mitten restraints. Family at bedside. Reason For Visit: INFLUENZAE PNEUMONIA C COPD EXACERBATION Physical Exam Vital Signs: Temp Pulse Resp BP Pulse Ox 98.2 F 61 26 H 130/61 H 97 06/02/17 15:21 06/02/17 19:45 06/02/17 19:45 06/02/17 15:21 06/02/17 19:45 Intake & Output 06/01/17 06/02/17 06/03/17 06:59 06:59 06:59 Intake Total 360 2606 800 Output Total 128 370 9440 Balance -290 2156 -200 Weight 112.5 kg 108.9 kg GEN: NAD, well-deloped, well-nourished NECK supple, no JVD CV: RRR, NL S1S2 LUNGS: Few bilateral expiratory wheezes and basilar crackles, good air movement ABDOMEN Soft, NT, +BS EXTERMITIES: No e/c/c NEURO: Alert, oriented to name Results Laboratory Results: 06/02/17 08:49 06/02/17 08:49 06/02/17 06/02/17 06/02/17 01:24 08:49 08:49 WBC 12.5 H RBC 4.24 L Hgb 13.5 Hct 39.2 MCV 93 MCH 31.8 MCHC 34.3 RDW 15.1 H Plt Count 225 Seg Neutrophils % 77.6 Lymphocytes % 11.5 L Monocytes % 10.2 Eosinophils % 0.1 Basophils % 0.6 Absolute Neutrophils 9.7 H Absolute Lymphocytes 1.4 Absolute Monocytes 1.3 Absolute Eosinophils 0.0 Absolute Basophils 0.1 Carbonic Acid HCO3/H2CO3 Ratio ABG pH ABG pCO2 ABG pO2 ABG HCO3 ABG O2 Saturation ABG Base Excess FiO2 Sodium 137.9 Potassium 4.1 Chloride 105 Carbon Dioxide 22 Anion Gap 11 BUN 23 H Creatinine 0.92 Est GFR ( Amer) > 60 Est GFR (Non-Af Amer) > 60 Glucose 131 H Calcium 9.0 Magnesium 2.2 2.3 Urine Color Urine Appearance Urine pH Ur Specific [place] Urine Protein Urine Glucose (UA) Urine Ketones Urine Blood Urine Nitrite Ur Leukocyte Esterase Urine WBC (Auto) Urine RBC (Auto) 06/02/17 06/02/17 11:00 18:15 WBC RBC Hgb Hct MCV MCH MCHC RDW Plt Count Seg Neutrophils % Lymphocytes % Monocytes % Eosinophils % Basophils % Absolute Neutrophils Absolute Lymphocytes Absolute Monocytes Absolute Eosinophils Absolute Basophils Carbonic Acid 1.14 HCO3/H2CO3 Ratio 21:1 ABG pH 7.43 ABG pCO2 38.0 ABG pO2 97.5 ABG HCO3 24.4 ABG O2 Saturation 97.6 ABG Base Excess 0.2 FiO2 3L Sodium Potassium Chloride Carbon Dioxide Anion Gap BUN Creatinine Est GFR ( Amer) Est GFR (Non-Af Amer) Glucose Calcium Magnesium Urine Color YELLOW Urine Appearance CLEAR Urine pH 5.0 Ur Specific [place] 1.027 Urine Protein NEGATIVE Urine Glucose (UA) NEGATIVE Urine Ketones NEGATIVE Urine Blood NEGATIVE Urine Nitrite NEGATIVE Ur Leukocyte Esterase NEGATIVE Urine WBC (Auto) 1 Urine RBC (Auto) 1 06/02/17 06/02/17 06/02/17 01:24 01:24 08:49 Creatine Kinase 431 H 475 H CK-MB (CK-2) 7.08 H Troponin I < 0.012 06/02/17 06/02/17 06/02/17 08:49 14:06 14:06 Creatine Kinase 352 H CK-MB (CK-2) 6.96 H 5.33 H Troponin I 0.025 0.018 Impressions: Chest/Abdomen CTA 05/30/17 23:11 IMPRESSION: No evidence of pulmonary embolus. Chronic, small right basilar atelectasis or scar. Mild nonspecific mediastinal lymphadenopathy. Chest X-Ray 06/02/17 00:00 IMPRESSION: Interval development of left lower lobe pneumonia. Assessment & Plan - Diagnosis (1) Influenza A Is this a current diagnosis for this admission?: Yes Plan: Continue Tamiflu and supportive care measures. (2) Pneumonia Qualifiers: Pneumonia type: due to unspecified organism Is this a current diagnosis for this admission?: Yes Plan: Complicated by influenza and bandemia. Continue Tamiflu and vancomycin given influenza. Continue incentive spirometry, BiPAP albuterol and Atrovent. Blood cultures no growth 24 hours. Follow blood culture results.\ Also Levaquin added to antibiotics, will continue. Blood cultures from admission negative to date. (3) CAD (coronary artery disease) Is this a current diagnosis for this admission?: Yes Plan: No acute issue at this time. (4) Atrial fibrillation with rapid ventricular response Is this a current diagnosis for this admission?: Yes Plan: Rate control at this time. Continue heparin, diltiazem. Continue monitoring on telemetry. Follow-up EKG in a.m.
[2017-06-02] MEDS: MONTELUKAST SODIUM 10 MG TABLET PO SCH (22:17)
[2017-06-02] MEDS: LEVOFLOXACIN 750 MG TABLET PO SCH (22:17)
[2017-06-03] MEDS: IPRATROPIUM/ALBUTEROL 0.5-2.5 MG/3 ML AMPUL NEB SCH ×4 (01:59→21:04)
[2017-06-03] MEDS: VANCOMYCIN HCL 1,500 MG in DEXTROSE 5%-WATER 250 ML IV SCH ×2 (06:00→18:06)
[2017-06-03] MEDS: HEPARIN SOD (PORCINE) 5,000 UNIT/ML 1 ML SYRINGE SUBCUT SCH ×3 (06:00→22:26)
[2017-06-03 06:24] LABS: ABSOLUTE MONOCYTES (AUTO) 0.9 10^3/uL (0.1-1.4); ABSOLUTE NEUT (AUTO) 6.8 10^3/uL (1.7-8.2); BASOPHILS % (AUTO) 0.2 % (0-2); HEMATOCRIT 37.3 % (37.9-51.0); HEMOGLOBIN 12.9 g/dL (13.5-17.0); LYMPHOCYTES % (AUTO) 11.7 % (13-45); MEAN CORPUSCULAR HEMOGLOBIN 32.5 pg (27.0-33.4); MEAN CORPUSCULAR HGB CONC 34.6 g/dL (32.0-36.0); MEAN CORPUSCULAR VOLUME 94 fl (80-97); MONOCYTES % (AUTO) 10.4 % (3-13); PLATELET COUNT 205 10^3/uL (150-450); RED BLOOD COUNT 3.97 10^6/uL (4.35-5.55); SEGMENTED NEUTROPHILS % (AUTO) 77.7 % (42-78); TOTAL CELLS COUNTED % (AUTO) 100 %; WHITE BLOOD COUNT 8.8 10^3/uL (4.0-10.5)
[2017-06-03 06:51] LABS: VANCOMYCIN,TROUGH 15.7 ug/mL (5.0-20.0)
[2017-06-03 06:53] LABS: ANION GAP 10 (5-19); BLOOD UREA NITROGEN 17 mg/dL (7-20); CALCIUM 8.9 mg/dL (8.4-10.2); CARBON DIOXIDE 23 mmol/L (22-30); CHLORIDE 107 mmol/L (98-107); GLUCOSE 162 mg/dL (75-110); SODIUM 139.8 mmol/L (137-145)
--- NOTE | 2017-06-03 08:39 | RADIOLOGY REPORT (SQ) ---
EXAM DESCRIPTION: CT HEAD WITHOUT COMPLETED DATE/TIME: 06/03/2017 8:24 am REASON FOR STUDY: mental status change COMPARISON: 04/04/2014. TECHNIQUE: Axial images acquired through the brain without intravenous contrast. Images reviewed wi th bone, brain and subdural windows. Images stored on PACS. All CT scanners at this facility use dose modulation, iterative reconstruction, and/or weight based d osing when appropriate to reduce radiation dose to as low as reasonably achievable (ALARA). [facility]: Dose Right [facility]: CareDose [facility]: Dose Right [facility]: Teradose 4D [facility]: Smart [employer] RADIATION DOSE: CT Rad equipment meets quality standard of care and radiation dose reduction techniq ues were employed. CTDIvol: 64.6 mGy. DLP: 1163 mGy-cm. mGy. LIMITATIONS: None. FINDINGS: VENTRICLES: Prominent. CEREBRUM: There is again evidence of decreased attenuation subcortical periventricular white matter c onsistent chronic white matter change. No intracranial hemorrhage. No midline shift. CEREBELLUM: No masses. No hemorrhage. No alteration of density. No evidence for acute infarction. EXTRAAXIAL SPACES: Age related involutional change. ORBITS AND GLOBE: No intra- or extraconal masses. Normal contour of globe without masses. CALVARIUM: No fracture. PARANASAL SINUSES: Chronic mucosal thickening right maxillary and bilateral ethmoid sinuses. SOFT TISSUES: No mass or hematoma. OTHER: No other significant finding. IMPRESSION: NO SIGNIFICANT INTERVAL CHANGE. EVIDENCE OF ACUTE STROKE: NO. COMMENT: Quality ID # [id number]: Final reports with documentation of one or more dose reduction techniques (e.g., Automated exposure control, adjustment of the mA and/or kV according to patient size, use of iterative reconstruction technique) TECHNICAL DOCUMENTATION: JOB ID: [id number] HI-69 2010 [employer]- All Rights Reserved
[2017-06-03] MEDS: LORATADINE 10 MG TABLET PO SCH (09:27)
[2017-06-03] MEDS: ASPIRIN 325 MG TABLET PO SCH (09:27)
[2017-06-03] MEDS: MEMANTINE HCL 10 MG TABLET PO SCH ×2 (09:27→18:05)
[2017-06-03] MEDS: GUAIFENESIN 600 MG TABLET.SA PO SCH ×2 (09:27→22:27)
[2017-06-03] MEDS: DONEPEZIL HCL 5 MG TABLET PO SCH ×2 (09:27→18:05)
[2017-06-03] MEDS: PREDNISONE 20 MG TABLET PO SCH ×2 (09:27→22:27)
[2017-06-03] MEDS: OSELTAMIVIR PHOSPHATE 75 MG CAPSULE PO SCH (09:27)
[2017-06-03] MEDS: TAMSULOSIN HCL 0.4 MG CAP.SR.24H PO SCH ×2 (09:27→18:05)
[2017-06-03] MEDS: FINASTERIDE 5 MG TABLET PO SCH (09:27)
[2017-06-03] MEDS: FLUTICASONE NASAL SPRAY 50 MCG/SPRY 120 SPRAY/16 GM NASL SCH ×2 (09:28→22:27)
--- NOTE | 2017-06-03 09:58 | EKG REPORT ---
SEVERITY:- NORMAL ECG - SINUS RHYTHM : Confirmed by: Damon Hale 03-Jun-2017 09:57:29
--- NOTE | 2017-06-03 14:36 | PDOC PROGRESS REPORT ---
Subjective Progress Note for:: 06/03/17 Subjective:: Doing much better today. No more episodes of rapid A. fib overnight. Restlessness much improved and has since been off mitten restraints. at bedside. Reason For Visit: INFLUENZAE PNEUMONIA C COPD EXACERBATION Physical Exam Vital Signs: Temp Pulse Resp BP Pulse Ox 98.0 F 62 18 134/75 H 95 06/03/17 07:06 06/03/17 08:30 06/03/17 08:30 06/03/17 07:06 06/03/17 08:30 Intake & Output 06/02/17 06/03/17 06/04/17 06:59 06:59 06:59 Intake Total 2606 1250 591 Output Total 450 1000 350 Balance 2156 250 241 Weight 108.9 kg 109.7 kg GEN: NAD, well-deloped, well-nourished NECK supple, no JVD CV: RRR, NL S1S2 LUNGS: Few basilar crackles, good air movement ABDOMEN Soft, NT, +BS EXTERMITIES: No e/c/c NEURO: Alert, oriented 3, no focal weakness Results Laboratory Results: 06/03/17 05:47 06/03/17 05:47 06/02/17 06/03/17 06/03/17 18:15 05:47 05:47 WBC 8.8 RBC 3.97 L Hgb 12.9 L Hct 37.3 L MCV 94 MCH 32.5 MCHC 34.6 RDW 15.0 H Plt Count 205 Seg Neutrophils % 77.7 Lymphocytes % 11.7 L Monocytes % 10.4 Eosinophils % 0.0 Basophils % 0.2 Absolute Neutrophils 6.8 Absolute Lymphocytes 1.0 Absolute Monocytes 0.9 Absolute Eosinophils 0.0 Absolute Basophils 0.0 Sodium Potassium Chloride Carbon Dioxide Anion Gap BUN Creatinine 0.76 Est GFR ( Amer) > 60 Est GFR (Non-Af Amer) > 60 Glucose Calcium Urine Color YELLOW Urine Appearance CLEAR Urine pH 5.0 Ur Specific [place] 1.027 Urine Protein NEGATIVE Urine Glucose (UA) NEGATIVE Urine Ketones NEGATIVE Urine Blood NEGATIVE Urine Nitrite NEGATIVE Ur Leukocyte Esterase NEGATIVE Urine WBC (Auto) 1 Urine RBC (Auto) 1 06/03/17 05:47 WBC RBC Hgb Hct MCV MCH MCHC RDW Plt Count Seg Neutrophils % Lymphocytes % Monocytes % Eosinophils % Basophils % Absolute Neutrophils Absolute Lymphocytes Absolute Monocytes Absolute Eosinophils Absolute Basophils Sodium 139.8 Potassium 4.0 Chloride 107 Carbon Dioxide 23 Anion Gap 10 BUN 17 Creatinine 0.78 Est GFR ( Amer) > 60 Est GFR (Non-Af Amer) > 60 Glucose 162 H Calcium 8.9 Urine Color Urine Appearance Urine pH Ur Specific [place] Urine Protein Urine Glucose (UA) Urine Ketones Urine Blood Urine Nitrite Ur Leukocyte Esterase Urine WBC (Auto) Urine RBC (Auto) 06/02/17 06/02/17 06/02/17 01:24 01:24 08:49 Creatine Kinase 431 H 475 H CK-MB (CK-2) 7.08 H Troponin I < 0.012 06/02/17 06/02/17 06/02/17 08:49 14:06 14:06 Creatine Kinase 352 H CK-MB (CK-2) 6.96 H 5.33 H Troponin I 0.025 0.018 Impressions: Chest/Abdomen CTA 05/30/17 23:11 IMPRESSION: No evidence of pulmonary embolus. Chronic, small right basilar atelectasis or scar. Mild nonspecific mediastinal lymphadenopathy. Chest X-Ray 06/02/17 00:00 IMPRESSION: Interval development of left lower lobe pneumonia. Head CT 06/03/17 00:00 IMPRESSION: NO SIGNIFICANT INTERVAL CHANGE. EVIDENCE OF ACUTE STROKE: NO. Assessment & Plan - Diagnosis (1) Influenza A Is this a current diagnosis for this admission?: Yes Plan: Pt improved. Continue Tamiflu and supportive care measures. (2) Pneumonia Qualifiers: Pneumonia type: due to unspecified organism Is this a current diagnosis for this admission?: Yes Plan: Complicated by influenza and bandemia. Continue Tamiflu and vancomycin given influenza. Continue Levaquin antibiotics as well. Blood cultures from admission negative to date. Continue incentive spirometry, BiPAP albuterol and Atrovent. (3) CAD (coronary artery disease) Is this a current diagnosis for this admission?: Yes Plan: No acute issue at this time. (4) Atrial fibrillation with rapid ventricular response Is this a current diagnosis for this admission?: Yes Plan: Resolved, patient now in SR. Continue heparin, diltiazem. Continue monitoring on telemetry. - Plan Summary Plan Summary: Possible home in a.m. if stable.
[2017-06-03] MEDS: MONTELUKAST SODIUM 10 MG TABLET PO SCH (22:27)
[2017-06-03] MEDS: LEVOFLOXACIN 750 MG TABLET PO SCH (22:27)
[2017-06-03] MEDS: ACETAMINOPHEN 325 MG TABLET PO PRN (22:41)
[2017-06-04] MEDS: IPRATROPIUM/ALBUTEROL 0.5-2.5 MG/3 ML AMPUL NEB SCH ×2 (02:01→08:17)
[2017-06-04] MEDS: VANCOMYCIN HCL 1,500 MG in DEXTROSE 5%-WATER 250 ML IV SCH (06:33)
[2017-06-04] MEDS: HEPARIN SOD (PORCINE) 5,000 UNIT/ML 1 ML SYRINGE SUBCUT SCH (06:33)
[2017-06-04 07:00] LABS: VANCOMYCIN,TROUGH 14.7 ug/mL (5.0-20.0)
[2017-06-04 07:55] LABS: HEMATOCRIT 36.4 % (37.9-51.0); HEMOGLOBIN 12.6 g/dL (13.5-17.0); MEAN CORPUSCULAR HEMOGLOBIN 32.5 pg (27.0-33.4); MEAN CORPUSCULAR HGB CONC 34.6 g/dL (32.0-36.0); MEAN CORPUSCULAR VOLUME 94 fl (80-97); PLATELET COUNT 201 10^3/uL (150-450); RED BLOOD COUNT 3.88 10^6/uL (4.35-5.55); RED CELL DISTRIBUTION WIDTH 14.9 % (11.5-14.0); WHITE BLOOD COUNT 10.1 10^3/uL (4.0-10.5)
[2017-06-04 08:05] LABS: ANION GAP 8 (5-19); BLOOD UREA NITROGEN 16 mg/dL (7-20); CALCIUM 8.9 mg/dL (8.4-10.2); CARBON DIOXIDE 23 mmol/L (22-30); CHLORIDE 107 mmol/L (98-107); GLUCOSE 183 mg/dL (75-110); POTASSIUM 3.8 mmol/L (3.6-5.0); SODIUM 138.1 mmol/L (137-145)
[2017-06-04 08:50] LABS: ABSOLUTE LYMPHOCYTES# (MANUAL) 1.7 10^3/uL (0.5-4.7); ABSOLUTE NEUTROPHILS# (MANUAL) 7.3 10^3/uL (1.7-8.2); BASOPHILS % (MANUAL) 0 % (0-2); EOSINOPHILS % (MANUAL) 1 % (0-6); LYMPHOCYTES % (MANUAL) 14 % (13-45); MONOCYTES % (MANUAL) 10 % (3-13); SEGMENTED NEUTROPHILS % (MAN) 72 % (42-78); TOTAL CELLS COUNTED 100
[2017-06-04 08:52] LABS: ANISOCYTOSIS SLIGHT; OVALOCYTES SLIGHT; PLATELET COMMENT ADEQUATE; POIKILOCYTOSIS SLIGHT; POLYCHROMASIA SLIGHT
[2017-06-04] MEDS: TAMSULOSIN HCL 0.4 MG CAP.SR.24H PO SCH (09:39)
[2017-06-04] MEDS: FINASTERIDE 5 MG TABLET PO SCH (09:39)
[2017-06-04] MEDS: DONEPEZIL HCL 5 MG TABLET PO SCH (09:39)
[2017-06-04] MEDS: LORATADINE 10 MG TABLET PO SCH (09:39)
[2017-06-04] MEDS: ASPIRIN 325 MG TABLET PO SCH (09:39)
[2017-06-04] MEDS: GUAIFENESIN 600 MG TABLET.SA PO SCH (09:39)
[2017-06-04] MEDS: OSELTAMIVIR PHOSPHATE 75 MG CAPSULE PO SCH (09:40)
[2017-06-04] MEDS: PREDNISONE 20 MG TABLET PO SCH (09:40)
[2017-06-04] MEDS: MEMANTINE HCL 10 MG TABLET PO SCH (09:40)
[2017-06-04] MEDS: FLUTICASONE NASAL SPRAY 50 MCG/SPRY 120 SPRAY/16 GM NASL SCH (09:40)
[2017-06-04 12:10] VITALS: BP 120/62
--- NOTE | 2017-06-04 12:36 | PDOC DISCHARGE SUMMARY ---
General - Admit/Disc Date/PCP Admission Date/Primary Care Provider: 05/31/17 01:33 NORMA OROZCO MD Discharge Date: 06/04/17 - Discharge Diagnosis (1) Influenza A Is this a current diagnosis for this admission?: Yes (2) Pneumonia Is this a current diagnosis for this admission?: Yes (3) CAD (coronary artery disease) Is this a current diagnosis for this admission?: Yes (4) Atrial fibrillation with rapid ventricular response Is this a current diagnosis for this admission?: Yes - Additional Information Resuscitation Status: Full Code Discharge Diet: As Tolerated Discharge Activity: Activity As Tolerated, Balance Activity w/Rest, Slowly Increase Activity Prescriptions: Cefdinir [Omnicef 300 mg Capsule] 1 cap PO BID #10 capsule Doxycycline Hyclate 100 mg PO BID #10 capsule Prednisone [Deltasone 20 mg Tablet] 20 mg PO Q12 #10 tablet Home Medications: Albuterol Sulfate [Ventolin HFA MDI 18 GM] 2 puff IH Q4HP PRN 05/31/17 Aspirin [Aspirin 325 mg Tablet] 325 mg PO DAILY 05/31/17 Atorvastatin Calcium [Lipitor 40 mg Tablet] 40 mg PO QHS 05/31/17 Cetirizine HCl [Zyrtec 10 mg Tablet] 10 mg PO DAILY 05/31/17 Donepezil HCl [Aricept] 10 mg PO BID 05/31/17 Esomeprazole Magnesium [Nexium] 40 mg PO DAILY 05/31/17 Furosemide [Lasix 20 mg Tablet] 60 mg PO DAILY 05/31/17 Montelukast Sodium [Singulair 10 mg Tablet] 10 mg PO QPM 05/31/17 Multivitamin/Iron/Folic Acid [Centrum Adults Tablet] 1 tab PO DAILY 05/31/17 Solifenacin Succinate [Vesicare] 5 mg PO DAILY 05/31/17 Vitamin B Complex [B Complex] 1 tab PO DAILY 05/31/17 Cefdinir [Omnicef 300 mg Capsule] 1 cap PO BID #10 capsule 06/04/17 Doxycycline Hyclate 100 mg PO BID #10 capsule 06/04/17 Guaifenesin [Robitussin Syrup 200 mg/10 ml Ud Cup] 200 mg PO Q4HP PRN udc 06/04 Prednisone [Deltasone 20 mg Tablet] 20 mg PO Q12 #10 tablet 06/04/17 History of Present Illness History of Present Illness: LISE ARCHIBALD is a 72 year old male with past medical history of COPD, obstructive sleep apnea and vascular dementia. Patient presented with 2 days of exertional shortness of breath and nonproductive cough prompting an evaluation emergency room where he was found to have influenza A, started on Tamiflu, albuterol and Atrovent. CTA obtained was negative for pulmonary emboli but showed emphysema with scarring. Given persistent hypoxia he was referred to the hospitalist for admission. Hospital Course Hospital Course: Patient was treated with IV fluids. There was concern for pneumonia he was also started on Vanco, given he has flu. Follow-up chest x-ray after hydration revealed left lower lobe pneumonia. Levaquin was added to antibiotics. Hospital course complicated by an episode of the patient becoming agitated and restless 2 nights ago. He also had episode of A. fib with rapid ventricular response. He was treated with Cardizem and this has since resolved. For restlessness he received Ativan which did not help he received Haldol which helped. This is thought to be secondary to patient scarring infection or hospitalization. He is doing better now, feeling much better, O2 sat 95% on room air, and patient feels ready to go home. at bedside she admits that patient is doing much better and wishes for him to go home. Is being discharged in improved condition. She is to follow with his regular physician within 1 week. He is being discharged on cefdinir 300 mg twice daily for 5 additional days of antibiotics for a total of 10 days. Will also be treated with doxycycline 100 mg twice daily for 5 additional days to provide any possible staph aureus/MRSA. Of note is that patient received 5 days of Vanco in the hospital. Again, patient is afebrile he is not in sinus rhythm. Patient and deny patient having a history of A. fib. They did not want chronic anticoagulation on this time. Will discuss with his PCP and reconsider possible anticoagulation then if recurrence of A. fib. Risk and benefits explained and they verbalized understanding. Physical Exam Vital Signs: Temp Pulse Resp BP Pulse Ox 97.7 F 56 L 22 H 120/62 96 06/04/17 12:08 06/04/17 12:08 06/04/17 12:08 06/04/17 12:08 06/04/17 12:08 Intake & Output 06/03/17 06/04/17 06/05/17 06:59 06:59 06:59 Intake Total 1250 2105 Output Total 1000 350 Balance 250 1755 Weight 109.7 kg 110.2 kg Results Laboratory Results: 06/04/17 05:51 06/04/17 05:51 06/04/17 06/04/17 06/04/17 05:51 05:51 05:51 WBC 10.1 RBC 3.88 L Hgb 12.6 L Hct 36.4 L MCV 94 MCH 32.5 MCHC 34.6 RDW 14.9 H Plt Count 201 Seg Neutrophils % Not Reportable Lymphocytes % Not Reportable Monocytes % Not Reportable Eosinophils % Not Reportable Basophils % Not Reportable Absolute Neutrophils Not Reportable Absolute Lymphocytes Not Reportable Absolute Monocytes Not Reportable Absolute Eosinophils Not Reportable Absolute Basophils Not Reportable Sodium 138.1 Potassium 3.8 Chloride 107 Carbon Dioxide 23 Anion Gap 8 BUN 16 Creatinine 0.85 0.85 Est GFR ( Amer) > 60 > 60 Est GFR (Non-Af Amer) > 60 > 60 Glucose 183 H Calcium 8.9 06/02/17 06/02/17 06/02/17 01:24 01:24 08:49 Creatine Kinase 431 H 475 H CK-MB (CK-2) 7.08 H Troponin I < 0.012 06/02/17 06/02/17 06/02/17 08:49 14:06 14:06 Creatine Kinase 352 H CK-MB (CK-2) 6.96 H 5.33 H Troponin I 0.025 0.018 Impressions: Chest/Abdomen CTA 05/30/17 23:11 IMPRESSION: No evidence of pulmonary embolus. Chronic, small right basilar atelectasis or scar. Mild nonspecific mediastinal lymphadenopathy. Chest X-Ray 06/02/17 00:00 IMPRESSION: Interval development of left lower lobe pneumonia. Head CT 06/03/17 00:00 IMPRESSION: NO SIGNIFICANT INTERVAL CHANGE. EVIDENCE OF ACUTE STROKE: NO. Plan Time Spent: Greater than 30 Minutes
== END 2017-06-04 12:54 | disposition home or self-care (01) | DRG 195 ==
LOC: ER 19:32 → EH 05-31 01:33 → 4N 05-31 21:05 → 3W 06-02 02:41
PROVIDERS: ADMIT Internal Medicine; ATTEND Internal Medicine
PROC: 5A09557 Assistance with Respiratory Ventilation, Greater than 96 Consecutive Hours, Continuous Positive Airway Pressure (ICD-10-PCS; principal; 2017-05-31)
DX: J10.00 Influenza due to other identified influenza virus with unspecified type of pneumonia (principal); J43.9 Emphysema, unspecified; I48.91 Unspecified atrial fibrillation; I25.10 Atherosclerotic heart disease of native coronary artery without angina pectoris; G47.33 Obstructive sleep apnea (adult) (pediatric); E78.5 Hyperlipidemia, unspecified; K21.9 Gastro-esophageal reflux disease without esophagitis; K44.9 Diaphragmatic hernia without obstruction or gangrene; F03.90 Unspecified dementia, unspecified severity, without behavioral disturbance, psychotic disturbance, mood disturbance, and anxiety; M19.90 Unspecified osteoarthritis, unspecified site; I25.2 Old myocardial infarction; Z88.8 Allergy status to other drugs, medicaments and biological substances; Z79.82 Long term (current) use of aspirin; Z79.51 Long term (current) use of inhaled steroids; Z78.1 Physical restraint status
CPT/HCPCS: 36415; 36600; 70450; 71045; 71046; 71275; 80048; 80053; 80202; 81001; 82550; 82553; 82565; 82803; 83605; 83735; 83880; 84484; 85025; 87040; 87804; 93005; 93010; 94640; 94660; 94799; 96374; 99285; J1630; J1644; J1956; J2060; J2930; J3370; J3490; J7030; J7060; J7512; J7620

== ENCOUNTER 2018-03-27 09:16 | Emergency (ER) | payer MEDICARE, BC ==
[2018-03-27] MEDS ORDERED: DIPH/PERTUSS(ACELL)/TETANUS VAC/PF 0.5 ML SYR (>=10YO) IM ONE (09:38)
--- NOTE | 2018-03-27 09:41 | ER Document Report ---
ED Medical Screen (RME) - General Chief Complaint: Fall Injury Stated Complaint: FALL/FACIAL INJURY Time Seen by Provider: 03/27/18 09:34 TRAVEL OUTSIDE OF THE [place] IN LAST 30 DAYS: No - HPI Notes: 03/27/18 09:39 Patient is a 73-year-old male that presents to the emergency department for chief complaint of head injury. Patient reports a fall this morning. He does not remember waking up or attempting to get out of bed. He does not remember any events of this morning or how he fell. He is complaining of a numb feeling over his right eye. He denies nausea, vomiting, vision changes, neck pain and weakness. He denies being on blood thinning medications ROS: GENERAL: Denies fever of chills CV: Denies chest pain PHYSICAL EXAMINATION: GENERAL: Well-appearing, well-nourished and in no acute distress. HEAD: Right eyebrow edema, ecchymosis, and laceration. EYES: Pupils equal round extraocular movements intact. Right eye conjunctival injection ENT: Nares patent NECK: No midline spinal tenderness or step-off LUNGS: No respiratory distress Musculoskeletal: Normal range of motion NEUROLOGICAL: Normal speech PSYCH: Normal mood, normal affect. MDM: Patient seen and examined for rapid initial assessment. Vital signs reviewed. A comprehensive ED assessment and evaluation of the patient, analysis of test results and completion of the medical decision making process will be conducted by additional ED providers. - Related Data Allergies/Adverse Reactions: nitroglycerin [Nitroglycerin] Allergy (Verified 03/27/18 09:21) BOTTOMED OUT BLOOD PRESSURE Past Medical History - Past Medical History Cardiac Medical History: Reports: Hx Coronary Artery Disease, Hx Heart Attack, Hx Hypercholesterolemia Denies: Hx Hypertension Pulmonary Medical History: Reports: Hx Bronchitis, Hx COPD, Hx Pneumonia - pt states that he had pneumonia 2 months ago Denies: Hx Asthma Neurological Medical History: Denies: Hx Cerebrovascular Accident, Hx Seizures Renal/ Medical History: Reports: Hx Benign Prostatic Hyperplasia. Denies: Hx Peritoneal Dialysis GI Medical History: Reports: Hx Gastroesophageal Reflux Disease, Hx Hiatal Hernia. Denies: Hx Hepatitis, Hx Ulcer Musculoskeltal Medical History: Reports Hx Arthritis Infectious Medical History: Denies: Hx Hepatitis Past Surgical History: Reports: Hx Abdominal Surgery - [place], Hx Cardiac Catheterization, Hx Cardiac Surgery - [facility], Hx Cholecystectomy, Hx Coronary Artery Bypass Graft - 1993, Hx Herniorrhaphy, Hx Open Heart Surgery - 1993 CABG. Denies: Hx Pacemaker - Immunizations Hx Diphtheria, Pertussis, Tetanus Vaccination: Yes History of Influenza Vaccine for 01/2017 - 06/2017 Season: Yes Influenza Administration Date for 01/2017 - 06/2017 Season: 01/15/17 Doctor's Discharge - Discharge Referrals: NORMA OROZCO MD [Primary Care Provider] - Follow up as needed
--- NOTE | 2018-03-27 10:23 | ER Document Report ---
ED General <PETERSONPIERCE - Last Filed: 03/27/18 14:50> - General Mode of Arrival: Ambulatory Information source: Patient TRAVEL OUTSIDE OF THE [place] IN LAST 30 DAYS: No <LEROY SINGLETON - Last Filed: 03/27/18 15:12> - General Chief Complaint: Fall Injury Stated Complaint: FALL/FACIAL INJURY Time Seen by Provider: 03/27/18 09:34 Notes: 73-year-old male who presents to the emergency department today with complaints of a fall that occurred this morning when getting out of bed. Patient states he lost his balance and fell and hit his head on a nightstand. Patient has a history of vascular dementia and the states that his mentation is at baseline currently. Patient complains of a headache but denies any other symptoms including numbness, tingling, or extremity weakness. (LEROY SINGLETON) - Related Data Allergies/Adverse Reactions: nitroglycerin [Nitroglycerin] Allergy (Verified 03/27/18 09:21) BOTTOMED OUT BLOOD PRESSURE Past Medical History - General Information source: Patient, [facility] Records - Social History Smoking Status: Unknown if Ever Smoked Cigarette use (# per day): No Frequency of alcohol use: None Drug Abuse: None Lives with: Family Family History: COPD Patient has suicidal ideation: No Patient has homicidal ideation: No - Past Medical History Cardiac Medical History: Reports: Hx Coronary Artery Disease, Hx Heart Attack, Hx Hypercholesterolemia Pulmonary Medical History: Reports: Hx Bronchitis, Hx COPD, Hx Pneumonia - pt states that he had pneumonia 2 months ago Renal/ Medical History: Reports: Hx Benign Prostatic Hyperplasia GI Medical History: Reports: Hx Gastroesophageal Reflux Disease, Hx Hiatal Hernia Musculoskeletal Medical History: Reports Hx Arthritis Past Surgical History: Reports: Hx Abdominal Surgery - [place], Hx Cardiac Catheterization, Hx Cardiac Surgery - [facility], Hx Cholecystectomy, Hx Coronary Artery Bypass Graft - 1993, Hx Herniorrhaphy, Hx Open Heart Surgery - 1993 CABG - Immunizations Hx Diphtheria, Pertussis, Tetanus Vaccination: Yes Hx Pneumococcal Vaccination: 12/16/08 <LEROY SINGLETON - Last Filed: 03/27/18 15:12> Review of Systems - Review of Systems Constitutional: No symptoms reported EENT: No symptoms reported Cardiovascular: No symptoms reported Respiratory: No symptoms reported Gastrointestinal: No symptoms reported Genitourinary: No symptoms reported Male Genitourinary: No symptoms reported Musculoskeletal: No symptoms reported Skin: See HPI, Other - laceration above eyebrow on the right Hematologic/Lymphatic: No symptoms reported Neurological/Psychological: See HPI, Headaches. denies: Weakness, Numbness, Tingling -: Yes All other systems reviewed and negative <LEROY SINGLETON - Last Filed: 03/27/18 15:12> Physical Exam <PIERCE WINKLER - Last Filed: 03/27/18 14:50> <LEROY SINGLETON - Last Filed: 03/27/18 15:12> - Vital signs Vitals: Temp Pulse Resp BP Pulse Ox 97.4 F 60 14 154/75 H 93 03/27/18 09:47 03/27/18 09:47 03/27/18 09:47 03/27/18 09:47 03/27/18 09:47 - Notes Notes: Physical Exam: General: Alert. Telling jokes, very conversive. HEENT: Normocephalic. PERRL. Extraocular movements intact. Oropharynx clear. V shaped laceration forming approximately a 75 degree angle with each side measuring 1.5 cm in length with the point of the V being in the right eyebrow. No nasal septum hematoma. Nasal mucosa on the right is normal in appearance. Left nare has some dried blood and a small amount of fresh blood. No bone exposure. Neck: C-collar in place. Removed after cleared by CT. No midline tenderness with palpation. Supple. Respiratory: No respiratory distress. Clear and equal breath sounds bilaterally. Cardiovascular: Regular rate and rhythm. Abdominal: Normal Inspection. Non-tender. No distension. Normal Bowel Sounds. Back: Non-tender. No deformity or step off. Extremities: Moves all four extremities. Upper extremities: Normal inspection. Normal ROM. Lower extremities: Normal inspection. No edema. Normal ROM. Neurological: Cognition at baseline per , oriented to person and place but disoriented to date/month which states is his baseline. Normal speech. Psychological: Normal affect. Normal Mood. Skin: See HEENT exam (LEROY SINGLETON) Course - Laboratory Result Diagrams: 03/27/18 10:26 03/27/18 10:26 - Diagnostic Test Radiology reviewed: Image reviewed, Reports reviewed - CT scan of the head is unremarkable. CT scan of cervical spine did not show acute injury. CT scan of the facial bones shows bilateral minimally displaced nasal bone fractures. <PIERCE WINKLER - Last Filed: 03/27/18 14:50> - Laboratory Result Diagrams: 03/27/18 10:26 03/27/18 10:26 <LEROY SINGLETON - Last Filed: 03/27/18 15:12> - Vital Signs Vital signs: Temp Pulse Resp BP Pulse Ox 97.4 F 60 20 124/77 95 03/27/18 13:31 03/27/18 09:47 03/27/18 13:31 03/27/18 13:31 03/27/18 13:31 - Laboratory Laboratory results interpreted by me: 03/27/18 03/27/18 03/27/18 10:26 10:26 12:50 WBC 12.1 H RDW 14.3 H Carbon Dioxide 31 H Glucose 128 H Urine Ascorbic Acid 20 H Procedures - Laceration/Wound Repair Right Upper Face Wound's Depth, Shape: Superficial, Flap, Contused tissue Laceration pre-procedure: Sterile drapes applied, Shur-Clens applied Anesthetic type: 1% Lidocaine w/epi Volume Anesthetic (mLs): 4 Wound explored: Clean, No foreign body removed Irrigated w/ Saline (mLs): 30 Wound Debrided: Minimal Wound Repaired With: Sutures Suture Size/Type: 5:0 Number of Sutures: 7 Layer Closure?: No Post-procedure wound care: Sterile dressing applied Post-procedure NV exam normal: Yes Complications: No <PIERCE WINKLER - Last Filed: 03/27/18 14:50> Discharge <PIERCE WINKLER - Last Filed: 03/27/18 14:50> <LEROY SINGLETNO - Last Filed: 03/27/18 15:12> - Discharge Clinical Impression: Fall Qualifiers: Encounter type: initial encounter Qualified Code(s): W19.XXXA - Unspecified fall, initial encounter Forehead laceration Qualifiers: Encounter type: initial encounter Qualified Code(s): S01.81XA - Laceration without foreign body of other part of head, initial encounter Nasal bone fractures Qualifiers: Encounter type: initial encounter Fracture type: open Qualified Code(s): S02.2XXB - Fracture of nasal bones, initial encounter for open fracture Condition: Stable Disposition: HOME, SELF-CARE Additional Instructions: Facial Laceration: A laceration on the face usually heals quickly. Our treatment goal will be to avoid an unsightly scar or stitch-dodge. Your cut has been closed with the best techniques to avoid scarring, but a great deal depends on how well you protect the laceration -- and on your inherited tendency to scar. As facial cuts are usually caused by a blunt injury, it's usually best to rest for a day to avoid swelling. Do not allow any bumping or rubbing of the area. Keep the stitches dry. Follow the treatment plan the doctor has discussed with you and DO NOT DELAY getting the stitches out. Once stitches are removed, continue to protect the area from trauma and sunlight (use a sunscreen) for about six months. If any signs of infection occur (swelling, redness, increasing tenderness, red streaks, tender lumps in the neck or near the ear on the side of the laceration, or fever), see the doctor immediately. Fracture of the Nose: You have a fractured nose. The examination shows no evidence that the nose needs to be "set" or operated on. However, the physician must recheck the nose once the swelling has decreased. The final decision about straightening of the bones or surgery can be made once the swelling resolves. This usually takes three to five days. Rest in a reclining chair. Cold pack the nose for the next 24 to 36 hours. Do not blow the nose. This may increase the swelling or cause further bleeding. If you have painful swelling inside the nose or exquisite tenderness when the tip of the nose is touched, you should call the doctor at once or return for re-evaluation. You should also contact the doctor if you develop fever, purulent nasal drainage, increasing pain in the face, or problems with vision. Keep the wounds clean and dressed. Use ice packs to help reduce swelling. Take the medication as prescribed. Follow-up with an ear nose and throat surgeon to evaluate your nasal bone fractures. Return to the emergency room next Monday04/02/2018 to have your sutures removed. RETURN TO THE EMERGENCY ROOM IF ANY NEW OR WORSENING SYMPTOMS. Prescriptions: Cephalexin Monohydrate [Keflex 500 mg Capsule] 500 mg PO TID #15 capsule Hydrocodone/Acetaminophen [[place] 5-325 mg Tablet] 1 tab PO Q4 PRN #8 tablet PRN Reason: Referrals: NORMA OROZCO MD [Primary Care Provider] - Follow up as needed Scribe Attestation: 03/27/18 13:18 I personally performed the services described in the documentation, reviewed and edited the documentation which was dictated to the scribe in my presence, and it accurately records my words and actions. (PIERCE WINKLER) Scribe Documentation - Scribe Written by Reena:: Reena Giron, 03/27/2018, [id number] acting as scribe for :: Peterson <LEROY SINGLETON - Last Filed: 03/27/18 15:12>
[2018-03-27 10:51] LABS: ABSOLUTE BASOPHILS # (AUTO) 0.1 10^3/uL (0.0-0.2); ABSOLUTE EOSINOPHILS # (AUTO) 0.3 10^3/uL (0.0-0.6); ABSOLUTE LYMPHOCYTES (AUTO) 2.5 10^3/uL (0.5-4.7); ABSOLUTE MONOCYTES (AUTO) 1.1 10^3/uL (0.1-1.4); ABSOLUTE NEUT (AUTO) 8.1 10^3/uL (1.7-8.2); BASOPHILS % (AUTO) 0.9 % (0-2); EOSINOPHILS % (AUTO) 2.7 % (0-6); LYMPHOCYTES % (AUTO) 20.8 % (13-45); MEAN CORPUSCULAR HEMOGLOBIN 32.8 pg (27.0-33.4); MEAN CORPUSCULAR HGB CONC 34.2 g/dL (32.0-36.0); MEAN CORPUSCULAR VOLUME 96 fl (80-97); MONOCYTES % (AUTO) 9.1 % (3-13); PLATELET COUNT 292 10^3/uL (150-450); RED BLOOD COUNT 4.59 10^6/uL (4.35-5.55); RED CELL DISTRIBUTION WIDTH 14.3 % (11.5-14.0); SEGMENTED NEUTROPHILS % (AUTO) 66.5 % (42-78); TOTAL CELLS COUNTED % (AUTO) 100 %; WHITE BLOOD COUNT 12.1 10^3/uL (4.0-10.5)
[2018-03-27 10:59] LABS: ANION GAP 12 (5-19); BLOOD UREA NITROGEN 16 mg/dL (7-20); CALCIUM 9.7 mg/dL (8.4-10.2); CARBON DIOXIDE 31 mmol/L (22-30); CHLORIDE 102 mmol/L (98-107); GLUCOSE 128 mg/dL (75-110); POTASSIUM 4.2 mmol/L (3.6-5.0); SODIUM 144.7 mmol/L (137-145)
[2018-03-27] MEDS ORDERED: LIDOCAINE 1%/EPINEPHRINE INJ 20 ML VIAL INJ ONE (11:21)
[2018-03-27] MEDS ORDERED: CEPHALEXIN 500 MG CAPSULE PO ONE (13:03)
[2018-03-27] MEDS ORDERED: OXYCODONE-ACETAMINOPHEN 5-325 MG TABLET PO ONE (13:03)
[2018-03-27 13:13] LABS: AMORPHOUS SEDIMENT,URINE TRACE /HPF; APPEARANCE,URINE SLIGHTLY-CLOUDY; BILIRUBIN,URINE NEGATIVE (NEGATIVE); COLOR,URINE YELLOW; GLUCOSE, URINE NEGATIVE (NEGATIVE); KETONES,URINE NEGATIVE (NEGATIVE); LEUKOCYTE ESTERASE,URINE NEGATIVE (NEGATIVE); NITRITE,URINE NEGATIVE (NEGATIVE); PROTEIN,URINE NEGATIVE (NEGATIVE); URINE SPECIFIC GRAVITY 1.016; UROBILINOGEN,URINE NEGATIVE mg/dL (<2.0)
--- NOTE | 2018-03-27 13:13 | EKG REPORT ---
SEVERITY:- ABNORMAL ECG - SINUS RHYTHM RIGHT BUNDLE BRANCH BLOCK : Confirmed by: Aneta Baldwin MD 27-Mar-2018 13:12:06
[2018-03-27 13:45] VITALS: BP 124/77
--- NOTE | 2018-03-27 16:46 | RADIOLOGY REPORT (SQ) ---
EXAM DESCRIPTION: CT HEAD WITHOUT COMPLETED DATE/TIME: 03/27/2018 10:19 am REASON FOR STUDY: trauma COMPARISON: 06/03/2017 EXAM PARAMETERS: TECHNIQUE: Axial images acquired through the brain without intravenous contrast. I mages reviewed with bone, brain and subdural windows. Images stored on PACS. All CT scanners at this facility use dose modulation, iterative reconstruction, and/or weight based d osing when appropriate to reduce radiation dose to as low as reasonably achievable (ALARA). [facility]: Dose Right [facility]: [facility]Care [facility]: Dose Right [facility]: Teradose 4D [facility]: [employer] RADIATION DOSE: mGy. LIMITATIONS: None. FINDINGS: VENTRICLES: Prominent. CEREBRUM: No masses. No hemorrhage. No midline shift. Stable scattered areas of low density in the white matter most likely due to chronic micro-vascular ischemic change. No evidence for acute infar ction. CEREBELLUM: No masses. No hemorrhage. No alteration of density. No evidence for acute infarction. EXTRAAXIAL SPACES: Age-related involutional change. No fluid collections. No masses. ORBITS AND GLOBE: No intra- or extraconal masses. Normal contour of globe without masses. Evidence of prior cataract surgery. CALVARIUM: Mildly displaced bilateral nasal bone fractures. PARANASAL SINUSES: No fluid or mucosal thickening. SOFT TISSUES: No mass or hematoma. OTHER: No other significant finding. IMPRESSION: Stable chronic white matter changes without evidence of acute intracranial process. Mildly displaced bilateral nasal bone fractures with associated soft tissue swelling. TECHNICAL DOCUMENTATION: JOB ID: [id number] [facility] [[email or web address]] G9637: Final reports with documentation of one or more dose reduction techniques (e.g., Automate d exposure control, adjustment of the mA and/or kV according to patient size, use of iterative recons truction technique) 2010 [employer]- All Rights Reserved Reading location - IP/workstation name: [email or web address]
--- NOTE | 2018-03-27 16:46 | RADIOLOGY REPORT (SQ) ---
EXAM DESCRIPTION: CT CERVICAL SPINE WITHOUT COMPLETED DATE/TIME: 03/27/2018 10:19 am REASON FOR STUDY: trauma COMPARISON: None. EXAM PARAMETERS: TECHNIQUE: Axial images acquired through the cervical spine without intravenous con trast. Images reviewed with lung, soft tissue and bone windows. Reconstructed coronal and sagittal MPR images reviewed. Images stored on PACS. All CT scanners at this facility use dose modulation, iterative reconstruction, and/or weight based d osing when appropriate to reduce radiation dose to as low as reasonably achievable (ALARA). [facility]: Dose Right [facility]: [facility]: Dose Right [facility]: Teradose 4D [facility]: [employer] RADIATION DOSE: mGy. LIMITATIONS: None. FINDINGS: ALIGNMENT: Mild straightening of the normal cervical lordosis, likely positional. MINERALIZATION: Normal. VERTEBRAL BODIES: No fractures or dislocation. DISCS: Multilevel disc space narrowing with osteophytes greatest at C3-4 and C6-C7. FACETS, LATERAL MASSES, POSTERIOR ELEMENTS: Facet arthropathy. No fractures. No dislocation. No ac [place] findings. HARDWARE: None in the spine. VISUALIZED RIBS: No fractures. LUNG APICES AND SOFT TISSUES: No significant or acute findings. OTHER: No other significant finding. IMPRESSION: No evidence of acute osseous abnormality. Multilevel degenerative changes greatest at C3-4 and C6-7. TECHNICAL DOCUMENTATION: JOB ID: [id number] [facility] G9637: Final reports with documentation of one or more dose reduction techniques (e.g., Automate d exposure control, adjustment of the mA and/or kV according to patient size, use of iterative recons truction technique) 2010 [employer]- All Rights Reserved Reading location - IP/workstation name: [email or web address]
--- NOTE | 2018-03-27 16:48 | RADIOLOGY REPORT (SQ) ---
EXAM DESCRIPTION: CT FACIAL AREA WITHOUT COMPLETED DATE/TIME: 03/27/2018 10:19 am REASON FOR STUDY: trauma COMPARISON: None. EXAM PARAMETERS: TECHNIQUE: Noncontrasted images through the facial bones and orbits windowed for verito ne and soft tissue. Additional coronal and sagittal reconstructed images reviewed. All images store d on PACS. All CT scanners at this facility use dose modulation, iterative reconstruction, and/or weight based d osing when appropriate to reduce radiation dose to as low as reasonably achievable (ALARA). [facility]: Dose Right [facility]: [facility]: Dose Right [facility]: Teradose 4D [facility]: [employer] RADIATION DOSE: mGy. LIMITATIONS: None. FINDINGS: FACIAL BONES: Mildly displaced bilateral nasal bone fractures with associated soft tissue swelling. No additional fractures. ORBITS: Intact. No fracture. Symmetric intact globes and retroorbital soft tissues. Prior right ca taract surgery. PARANASAL SINUSES: Clear. No significant mucosal thickening, mass or fluid. SOFT TISSUES: Right frontal soft tissue swelling. No discrete mass. INFERIOR BRAIN: Limited view. No acute findings. OTHER: No other significant finding. IMPRESSION: Mildly displaced bilateral nasal bone fractures with associated soft tissue swelling. TECHNICAL DOCUMENTATION: JOB ID: [id number] [facility] G9637: Final reports with documentation of one or more dose reduction techniques (e.g., Automate d exposure control, adjustment of the mA and/or kV according to patient size, use of iterative recons truction technique) 2010 [employer]- All Rights Reserved Reading location - IP/workstation name: [email or web address]
== END 2018-03-27 13:47 | disposition home or self-care (01) ==
LOC: ER 09:16
DX: S02.2XXB Fracture of nasal bones, initial encounter for open fracture (principal); S01.81XA Laceration without foreign body of other part of head, initial encounter; R51 Headache; W19.XXXA Unspecified fall, initial encounter; W22.03XA Walked into furniture, initial encounter; Y93.89 Activity, other specified; F01.50 Vascular dementia, unspecified severity, without behavioral disturbance, psychotic disturbance, mood disturbance, and anxiety; I25.10 Atherosclerotic heart disease of native coronary artery without angina pectoris; I25.2 Old myocardial infarction; J44.9 Chronic obstructive pulmonary disease, unspecified; Z95.1 Presence of aortocoronary bypass graft; Z88.8 Allergy status to other drugs, medicaments and biological substances
CPT/HCPCS: 93005; 99284; 90471; 36415; 85025; 80048; 81001; 84484; 70450; 70486; 72125; 90715; 93010; 12013; L0120; A9270 ×2; J3490